=== PATIENT | female | born 1970 ===

== ENCOUNTER 2025-02-09 12:34 | Emergency (ER) | payer SELFPAY ==
[~2025-02-09] VITALS: Ht 170.2 cm; Wt 88.5 kg
[2025-02-09 12:46] VITALS: TEMP 98.2
--- NOTE | 2025-02-09 12:54 | EKG ---
[facility] Test Date: 2025-02-09 Test Time: 12:48:45 Pat Name: JAMES BARKLEY Department: [facility] Room: Gender: F [employer]or: [id number] : 1970 Requested By: ELLYN BAIN Order Number: [id number] Reading MD: Jl Azar Measurements Intervals [place] Rate: 55 P: 48 NC: 127 QRS: 10 QRSD: 101 T: 41 QT: 485 QTc: 466 Interpretive Statements Sinus rhythm No previous ECG available for comparison Electronically Signed On 02-09-2025 16:33:21 CDT by Jl Azar Please click the below link to view image of tracing.
[2025-02-09] MEDS: 0.9%NACL 1000ML 1,000 ML IV STA (13:26)
[2025-02-09 13:30] LABS: IMMATURE GRANULOCYTE ABSOLUTE 0.02 K/uL (0-1); NUCLEATED RED BLOOD CELLS 0.0 % (0.0-0.19); PLATELET COUNT (AUTO) 220 K/uL (130-400); RED BLOOD CELL COUNT(AUTO) 4.91 MIL/uL (4.00-5.50); RED CELL DISTRIBUTION WIDTH 12.1 % (11.0-15.5); WHITE BLOOD COUNT (AUTO) 7.0 K/uL (4.8-10.8)
[2025-02-09 13:44] LABS: CREATININE 0.7 mg/dL (0.5-1.0); GLOMERULAR FILTR. RATE CALC 103.0 mL/min (>90); GLUCOSE,RANDOM 106.0 mg/dL (70-105); SODIUM SERUM 144.0 mmol/L (136-145); UREA NITROGEN, BLOOD 12.0 mg/dL (7-18)
--- NOTE | 2025-02-09 13:45 | HMCIMG ---
EXAM: CR Chest, 1 View. CLINICAL HISTORY: cough COMPARISON: None provided. FINDINGS: LUNGS: There is no mass, infiltrate, or acute pulmonary abnormality. PLEURAL SPACES: No evidence of pleural effusion or pneumothorax. MEDIASTINUM: The cardiomediastinal silhouette is within normal limits. BONES: No acute osseous abnormality. IMPRESSION: No acute cardiopulmonary pathology is evident. /[place]
--- NOTE | 2025-02-09 14:07 | ERN ---
ED Note History of Present Illness Stated Complaint: HEADACHE Chief Complaint: Headache Time Seen by MD: 12:36 Time Seen by Midlevel: 12:40 Dictation: 54-year-old female coming in with complaints of headache, cough, congestion. Route as per EMS patient was complaining of chest pain so they gave her nitro sublingual along with Zofran4 mg. Patient went to go see her PCP yesterday and was placed on azithromycin, however states she still felt unwell today when she went to the PCP again in her blood pressure was elevated so she was sent to the emergency room. This time patient is awake alert and oriented times four. GCS is 15. No neurological deficits. NIH A0 in triage. At this time patient is denying any chest pain or chest discomfort. Allergies: Coded Allergies: zolpidem (Unverified Allergy, Unknown, 02/09/25) Past Medical History Past Medical History: Asthma Surgical History: Other Surgical History Other: PARTIAL HYSTERCECTOMY Review of System Dictation Constitutional: Negative for fever,chills, and weight loss Eyes: Negative for injury, pain,redness, and discharge ENT: Negative for injury,pain or swelling Cardiovascular: Negative for chest pain, palpitations, and edema Respiratory: Negative for shortness of breath, cough, and wheezing, Abdomen/GI: Negative for abdominal pain, nausea, vomiting, diarrhea, and constipation Back: Negative for injury and pain : Negative for injury, bleeding and discharge MS/Extremity: Negative for injury and deformity Skin: Negative for rash, and discoloration Neuro positive for headache, no weakness, no numbness, no tingling, and no seizure Psych: Negative for suicide ideation, homicidal ideation, and hallucinations Review of Systems: was completed Initial Vital Sign VS Vital Signs Date Time Temp Pulse Resp B/P (MAP) Pulse Ox O2 Delivery O2 Flow Rate FiO2 02/09/25 12:46 98.2 55 17 198/84 98 Room Air 0 02/09/25 14:21 21 Physical Exam Dictation General: awake, alert, NAD Head/Face: Normocephalic, atraumatic Eyes: PERRL, EOMI, vision at baseline ENT: oral cavity clear, TMs clear, no signs of infection Neck: Trachea midline, supple, no nuchal rigidity Cardiovascular: RRR, normal S1/S2, No MRGs, no JVD Respiratory: CTAB, no respiratory distress, No rales or wheezes Abdomen: Soft, non-tender, non-distended, normal bowel sounds, no guarding or rebound. Skin: Warm, dry, normal turgor, no rash MS/Extremity: Pulses equal, no cyanosis, neurovascular intact, FROM Neuro: COAx4, GCS 15, strength 5/5, CN 2-12 intact, normal cerebellar exam, normal gait, Psych: Normal behavior, mood, and affect normal Results (Laboratory/Radiology) Laboratory/Radiology Laboratory Tests Test 02/09/25 13:14 02/09/25 14:15 02/09/25 15:06 White Blood Count 7.0 K/uL (4.8-10.8) Red Blood Count 4.91 MIL/uL (4.00-5.50) Hemoglobin 14.9 g/dL (12.0-16.0) Hematocrit 43.8 % (36-48) Mean Corpuscular Volume 89.2 fL (79-99) Mean Corpuscular Hemoglobin 30.3 pg (27.0-33.0) Mean Corpuscular Hemoglobin Concent 34.0 g/dL (32.0-36.0) Red Cell Distribution Width 12.1 % (11.0-15.5) Platelet Count 220 K/uL (130-400) Mean Platelet Volume 10.4 fL (7.5-10.5) Immature Granulocyte % (Auto) 0.3 % (0-1) Neutrophils (%) (Auto) 53.1 % (40.0-77.0) Lymphocytes (%) (Auto) 36.7 % (21.0-51.0) Monocytes (%) (Auto) 6.3 % (3.0-13.0) Eosinophils (%) (Auto) 3.3 % (0.0-8.0) Basophils (%) (Auto) 0.3 % (0.0-5.0) Neutrophils # (Auto) 3.7 K/uL (1.8-7.7) Lymphocytes # (Auto) 2.6 K/uL (1.0-4.8) Monocytes # (Auto) 0.4 K/uL (0.1-1.0) Eosinophils # (Auto) 0.23 K/uL (0.00-0.70) Basophils # (Auto) 0.02 K/uL (0.00-0.20) Absolute Immature Granulocyte (auto 0.02 K/uL (0-1) Nucleated Red Blood Cells 0.0 % (0.0-0.19) Sodium Level 144 mmol/L (136-145) Potassium Level 3.3 mmol/L (3.5-5.1) L Chloride Level 103 mmol/L (101-111) Carbon Dioxide Level 29 mmol/L (21-32) Blood Urea Nitrogen 12 mg/dL (7-18) Creatinine 0.7 mg/dL (0.5-1.0) Glomerular Filtration Rate Calc 103 mL/min (>90) Random Glucose 106 mg/dL (70-105) H Total Calcium 8.6 mg/dL (8.5-10.1) Troponin I High Sensitivity 5 ng/L (4-50) Influenza Type A Antigen Negative For Type A Influenza Type B Antigen Negative For Type B SARS-CoV-2, RNA, NAAT NEGATIVE SARS CoV-2 Urine Color COLORLESS (YELLOW) Urine Appearance CLEAR (CLEAR) Urine pH 7.0 (5.0-8.0) Urine Specific [place] 1.004 (1.001-1.031) Urine Protein NEGATIVE mg/dL (NEGATIVE) Urine Glucose (UA) NEGATIVE mg/dL (NEGATIVE) Urine Ketones NEGATIVE mg/dL (NEGATIVE) Urine Occult Blood SMALL (NEGATIVE) H Urine Nitrate NEGATIVE (NEGATIVE) Urine Bilirubin NEGATIVE mg/dL (NEGATIVE) Urine Urobilinogen 0.2 mg/dL (0.2-1.0) Urine Leukocyte Esterase NEGATIVE [place]/uL Urine RBC 6-10 /HPF (0-1) H Urine WBC 0-1 /HPF (0-1) Urine Squamous Epithelial Cells RARE /HPF (0-2) Urine Bacteria RARE /HPF (None Seen) Labs Reviewed?: Yes EKG Comment: EKGs done at 12:48 p.m.. Sinus rhythm at a rate of 65. No STEMI interpreted by ER MD ED Course ED Course Orders Procedure Category Date Status Time Cbc With Differential LAB 02/09/25 Complete 12:46 Basic Metabolic Panel LAB 02/09/25 Complete 12:46 12 Lead Ekg Tracing- EKG 02/09/25 Resulted Technical 12:46 Troponin I High LAB 02/09/25 Complete Sensitivity 12:46 Covid Rna Naat LAB 02/09/25 Complete 12:46 Influenza Type A & B, LAB 02/09/25 Complete Rapid 12:46 Ct Head/Brain W/O CT 02/09/25 Resulted Contrast 12:46 0.9%Nacl 1000ml (Ns PHA 02/09/25 Complete 1000ml) 12:46 Ondansetron 4mg Inj PHA 02/09/25 Complete (Zofran 4mg Inj) 13:00 Chest 1vw RAD 02/09/25 Resulted 12:48 Acetaminophen 325 Tab PHA 02/09/25 Complete (Tylenol 325mg Tab 15:00 Urinalysis Profile LAB 02/09/25 Complete 15:04 Troponin I High LAB 02/09/25 In Process Sensitivity 15:50 Current Medications Medications (Trade) Dose Ordered Sig/Carter Route PRN Reason Start Time Stop Time Status Last Admin Dose Admin Acetaminophen (TYLenol 325MG TAB) 650 mg ONCE ONCE PO 02/09/25 15:00 02/09/25 15:01 DC 02/09/25 15:31 Ondansetron HCl (zoFRAN 4MG INJ) 4 mg ONCE ONCE IVP 02/09/25 13:00 02/09/25 13:01 DC 02/09/25 13:26 Sodium Chloride 1,000 ml @ 1,000 mls/hr Q1H STAT IV 02/09/25 12:46 02/09/25 13:45 DC 02/09/25 13:26 Vital Signs Date Time Temp Pulse Resp B/P (MAP) Pulse Ox O2 Delivery O2 Flow Rate FiO2 02/09/25 14:21 56 20 161/79 99 Room Air* 0 21 02/09/25 12:46 98.2 55 17 198/84 98 Room Air 0 HEART Score Response (Comments) Value History: Low suspicion (0) 0 EKG: Normal 0 Age: 45-65yrs (+1) 1 Risk Factors: No known risk factors (0) 0 Initial Troponin: Normal limit (0) 0 Total 1 Medical Decision Making MDM MDM: 54-year-old female coming in with complaints of headache, cough, congestion. Route as per EMS patient was complaining of chest pain so they gave her nitro sublingual along with Zofran4 mg. Patient went to go see her PCP yesterday and was placed on azithromycin, however states she still felt unwell today when she went to the PCP again in her blood pressure was elevated so she was sent to the emergency room. This time patient is awake alert and oriented times four. GCS is 15. No neurological deficits. NIH A0 in triage. At this t ren patient is denying any chest pain or chest discomfort. You had workup was unremarkable. Troponin x2 is negative. EKGs does not show any ST elevations or dysrhythmias. Heart score is one. Low risk. UA shows no evidence of urinary tract infection. End CT scan shows no acute finding. Throughout the ER stay patient blood pressure has come down to the 150 systolic. Spoke to patient extensively about possible causes of fatigue, headaches and chest pain. Educated that even though today's visit shows an no acute findings that she needs to follow up with the PCP and further investigate as far as hormones, vitamins, and further assess any cardiac etiology. Also discussed stress and anxiety can cause the same symptoms. 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 Discussed on signs and symptoms of when to return back to the emergency room and follow up with PCP as needed. Patient verbalized understanding, answered all questions. Differential diagnosis: ICH, CVA, ACS, anxiety, stress reaction, viral Rationale: Tests considered and ordered secondary to shared decision making include: Previous outside records reviewed: Old ER visits. Risk of complication and/or morbidity or mortality of patient management: None Medications-Per medication reconciliation Need for hospitalization: Patient does not meet criteria for hospitalization. Need for emergency major/minor surgery: No There are no social concerns with this patient. Prescription drug management Prescriptions will include symptomatic care Patient's prior external medical records from other ER visits were reviewed by me as indicated. Prior testing and results from previous visits were reviewed. Prior tests were taken into account with medical decision making and resource utilization, independent historian/historians were used to obtain complete medical history. I independently interpreted the test that were performed, results were reviewed by me and considered findings on radiology if ordered. Medical management and examination interpretation discussions were had by me with other qualified healthcare professionals as indicated for the patient's care. DX & DISP Disposition: Discharge Departure Impression: Primary Impression: Headache Additional Impressions: Chest pain, non-cardiac, Stress reaction Condition: Stable Additional Instructions: Follow up with your primary doctor in 1-2 days. Return to the hospital as needed. Time of Disposition: 16:47 I have reviewed the case, and I agree with, Diagnosis and Plan ELLYN BAIN Feb 09, 2025 14:07
[2025-02-09 14:21] VITALS: BP 161/79; PULSE 56; RESP 20; O2SAT 99
[2025-02-09 15:06] LABS: SARS-CoV-2, RNA, NAAT NEGATIVE SARS CoV-2 (NEGATIVE)
[2025-02-09 15:09] LABS: INFLUENZA TYPE A Negative For Type A (NEGATIVE); INFLUENZA TYPE B Negative For Type B (NEGATIVE)
[2025-02-09 15:13] LABS: ADD UA MICROSCOPIC YES; APPEARANCE,URINE CLEAR (CLEAR); GLUCOSE, URINE (UA) NEGATIVE (NEGATIVE); LEUKOCYTE ESTERASE ,URINE NEGATIVE Leu/uL (NEGATIVE); NITRATE,URINE NEGATIVE (NEGATIVE); OCCULT BLOOD,URINE SMALL (NEGATIVE)
[2025-02-09 15:15] LABS: SQUAMOUS EPITHELIAL CELL,UR RARE /HPF (0-2)
--- NOTE | 2025-02-09 16:29 | HMCIMG ---
EXAM: CT Head Without IV contrast. CLINICAL HISTORY: severe headache TECHNIQUE: Axial computed tomography images of the head/brain without intravenous contrast. COMPARISON: None provided. FINDINGS: BRAIN: No evidence of acute hemorrhage. No mass lesion. No CT evidence for acute territorial infarct. No midline shift or extra-axial collections. VENTRICLES: No hydrocephalus. ORBITS: The orbits are unremarkable. SINUSES AND MASTOIDS: The paranasal sinuses and mastoid air cells are clear. BONES: No fracture. SOFT TISSUES: Unremarkable. IMPRESSION: 1. No acute intracranial findings. /[place]
== END 2025-02-09 17:40 | disposition home or self-care (01) ==
LOC: EDH 12:34
DX: R51.9 Headache, unspecified (principal); R07.89 Other chest pain; F43.9 Reaction to severe stress, unspecified; J45.909 Unspecified asthma, uncomplicated; Z20.822 Contact with and (suspected) exposure to COVID-19; Z88.8 Allergy status to other drugs, medicaments and biological substances
CPT/HCPCS: 99285; 96374; 70450; 96361; 71045; 87635; 84484 ×2; 80048; 85025; 87804 ×2; 81001; 36415; 93005; J7030; J2405